=== PATIENT | female | born 1985 | race Caucasian/White ===

== ENCOUNTER → 2020-09-19 | Outpatient (CLI) | payer BC | LOC: KOH-I 15:29 | DX: J32.9 Chronic sinusitis, unspecified (principal); J34.2 Deviated nasal septum | CPT/HCPCS: 70486 ==

== ENCOUNTER → 2021-01-03 | Day surgery (SDC) | payer BC ==
[~2021-01-03] MED LIST: CLARITIN10 MG PO; DAILY VALUE1 EACH PO
== END | disposition home or self-care (01) ==
LOC: OR 06:37
DX: J32.0 Chronic maxillary sinusitis (principal); J32.2 Chronic ethmoidal sinusitis; J34.3 Hypertrophy of nasal turbinates; J34.89 Other specified disorders of nose and nasal sinuses; Z79.899 Other long term (current) drug therapy
CPT/HCPCS: 84703; C1726; C1889; J0171; J0690; J1100; J1170; J2001; J2250; J2370; J2405; J2704; J3010; J7030; J7120

== ENCOUNTER → 2021-08-28 | Outpatient (CLI) | payer BC ==
[2021-08-28 14:06] LABS: HEMOGLOBIN 11.5 gm/dl (12.3-15.3); RED BLOOD COUNT 4.49 M/UL (4.00-5.10); WHITE BLOOD COUNT 7.2 K/UL (4.5-11.0)
[2021-08-28 14:30] LABS: BUN/CREATININE RATIO 12 (0-10)
== END ==
LOC: LAB 13:43
PROVIDERS: Otolaryngology
DX: Z01.818 Encounter for other preprocedural examination (principal)
CPT/HCPCS: 36415; 80053; 85027; 93005